=== PATIENT | male | born 1945 | race Caucasian/White ===

== ENCOUNTER 2016-06-05 20:34 | Emergency (ER) | payer MEDICARE, OTHER ==
[2016-06-05 20:34] VITALS: BMI 26.3
--- NOTE | 2016-06-05 22:35 | C.PDOC ---
History Of Present Illness 71M c/o bloody stool that occurred around 8pm tonight right after using an enema. he says he had a large amount of hard stool accompanied with blood. he has been struggling with constipation- 2 weeks ago he had not had a bm for 1 week and so he took a laxative and had so much diarrhea that day he passed out was seen at another hospital- had a normal abdominal CT scan at that time per his son. he has a hx of rectal ca s/p surgery, chemo, radiation 2 years ago. Time Seen by Provider: 06/05/16 22:06 Chief Complaint (Nursing): GI Problem Past Medical History Vital Signs: Last Vital Signs Temp 98.2 F 06/05/16 23:50 Pulse 64 06/05/16 23:50 Resp 18 06/05/16 23:50 BP 119/68 06/05/16 23:50 Pulse Ox 98 06/05/16 23:50 - Medical History PMH: Arthritis Denies: CHF, COPD, HIV, HTN, Hypercholesterolemia, Hypothyroidism, Chronic Kidney Disease, Rheumatoid Arthritis - [facility] Procedures ANTERIOR RECT RESECT NEC (07/19/14) COLOSTOMY NOS (07/19/14) INTESTINAL ANASTOM NOS (07/19/14) LG BOWEL STOMA CLOSURE (10/14/14) OCCUPATIONAL THERAPY (08/03/14) PHYSICAL THERAPY NEC (08/03/14) RECREATIONAL THERAPY (08/03/14) VACCINATION NEC (10/14/14) Family History: States: Other (nc) - Social History Hx Tobacco Use: No Hx Alcohol Use: No Hx Substance Use: No - Immunization History Hx Tetanus Toxoid Vaccination: No Hx Influenza Vaccination: No Hx Pneumococcal Vaccination: No Review Of Systems Constitutional: Negative for: Fever, Chills Cardiovascular: Negative for: Chest Pain Respiratory: Negative for: Cough, Shortness of Breath Gastrointestinal: Positive for: Hematochezia. Negative for: Nausea, Vomiting, Abdominal Pain, Diarrhea, Melena Neurological: Negative for: Weakness, Numbness, Headache Physical Exam - Physical Exam Appears: Well, Non-toxic, No Acute Distress Skin: Warm, Dry, No Pale Head: Atraumatic Oral Mucosa: Moist Neck: Normal ROM Cardiovascular: Rhythm Regular, No Murmur Respiratory: No Decreased Breath Sounds, No Accessory Muscle Use, No Rales, No Rhonchi, No Wheezing Gastrointestinal/Abdominal: Bowel Sounds, Soft, No Tenderness Rectal: No Maroon Stool, No Melena, No Blood Streaked Stool, No Mass, Tenderness Extremity: No Swelling Neurological/Psych: Oriented x3, Other (no focal deficits) ED Course And Treatment - Laboratory Results Result Diagrams: 06/05/16 22:56 06/05/16 22:56 O2 Sat by Pulse Oximetry: 99 Medical Decision Making Medical Decision Making: pt resting comfortably, hemoccult neg rectal exam, vss, hb stable. disc w pt and son plan for close f/u and rtr. Disposition - Disposition Referrals: Spenser Collins MD [Staff Provider] - Disposition: HOME/ ROUTINE Disposition Time: 23:32 Condition: GOOD Additional Instructions: Please follow up with your doctor tomorrow. Return to the ER for any worsening symptoms or for any other concerns. Prescriptions: Polyethylene Glycol 3350 [Glycolax] 17 gm PO DAILY PRN #1 bottle PRN Reason: Constipation Instructions: High Fiber Diet (ED) Forms: Gen Discharge Inst Macanese Print Language: IRANIAN - Clinical Impression Clinical Impression: Blood in stool
[2016-06-05 22:58] LABS: BASO # 0.1 K/uL (0.0-0.2); LYMPH # 0.9 K/uL (1.0-4.3)
[2016-06-05 23:06] LABS: BASO % 1.1 % (0.0-2.0); EOS # 0.2 K/uL (0.0-0.7); EOS % 1.7 % (0.0-4.0); HEMATOCRIT 41.3 % (35.0-51.0); LYMPH % 10.5 % (20.0-40.0); MEAN CELL VOLUME 89.1 fL (80.0-94.0); MEAN CORPUSCULAR HEMOGLOBIN 29.6 pg (27.0-31.0); MEAN CORPUSCULAR HGB CONC 33.2 g/dL (33.0-37.0); MEAN PLATELET VOLUME 7.5 fL (7.2-11.7); MONO # 0.9 K/uL (0.0-0.8); MONO % 10.3 % (0.0-10.0); RED CELL DISTRIBUTION WIDTH 13.1 % (11.5-14.5)
[2016-06-05 23:07] LABS: WHITE BLOOD COUNT 8.8 K/uL (4.8-10.8)
[2016-06-05 23:11] LABS: CHLORIDE 96 mmol/L (98-107)
[2016-06-05 23:12] LABS: POTASSIUM 3.9 mmol/L (3.6-5.2); SODIUM 136 mmol/L (132-148)
[2016-06-05 23:14] LABS: ALB/GLOB RATIO 1.2 (1.0-2.1); ALKALINE PHOSPHATASE 92 U/L (38-126); AST/SGOT 26 U/L (17-59); BILIRUBIN,TOTAL 0.4 mg/dL (0.2-1.3); CARBON DIOXIDE 28 mmol/L (22-30); GFR AFRICAN-AMERICAN > 60; TOTAL PROTEIN 7.4 g/dL (6.3-8.3)
[2016-06-05 23:15] LABS: ALT/SGPT 34 U/L (21-72); BLOOD UREA NITROGEN 19 mg/dL (9-20); CALCIUM 8.6 mg/dl (8.6-10.4); GLUCOSE,RANDOM 107 mg/dL (75-110)
[2016-06-05 23:51] VITALS: BP 119/68; PULSE 64; RESP 18; TEMP 98.2
[2016-06-06 13:49] VITALS: O2SAT 99
== END 2016-06-05 23:52 | disposition home or self-care (01) ==
LOC: C.ER 20:34
DX: K92.1 Melena (principal)
CPT/HCPCS: 80053; 85025; 99284; G0328

== ENCOUNTER 2016-10-20 11:08 | Emergency (ER) | payer MEDICARE, OTHER ==
[2016-10-20 11:09] VITALS: BMI 26.3
[2016-10-20 11:27] VITALS: BP 153/97; PULSE 63; RESP 16; TEMP 98.2; O2SAT 97
--- NOTE | 2016-10-20 12:07 | C.PDOC ---
History Of Present Illness 71 yr old male presents to the ER with 1 week history of body aches, which is assocaited with itchy rash on the back and right upper arm. Patient denies travel, fever, nausea or vomiting. Time Seen by Provider: 10/20/16 11:36 Chief Complaint (Nursing): Abnormal Skin Integrity History Per: Patient History/Exam Limitations: no limitations Onset/Duration Of Symptoms: Days (1 week ) Current Symptoms Are (Timing): Still Present Past Medical History Reviewed: Historical Data, Nursing Documentation, Vital Signs Vital Signs: Last Vital Signs Temp 98.2 F 10/20/16 11:12 Pulse 63 10/20/16 11:12 Resp 16 10/20/16 11:12 BP 153/97 H 10/20/16 11:12 Pulse Ox 97 10/20/16 13:21 - Medical History PMH: Arthritis, Hiatal Hernia - [facility] Procedures ANTERIOR RECT RESECT NEC (07/19/14) COLOSTOMY NOS (07/19/14) INTESTINAL ANASTOM NOS (07/19/14) LG BOWEL STOMA CLOSURE (10/14/14) OCCUPATIONAL THERAPY (08/03/14) PHYSICAL THERAPY NEC (08/03/14) RECREATIONAL THERAPY (08/03/14) VACCINATION NEC (10/14/14) Family History: States: No Known Family Hx - Social History Hx Tobacco Use: No Hx Alcohol Use: No Hx Substance Use: No - Immunization History Hx Tetanus Toxoid Vaccination: No Hx Influenza Vaccination: No Hx Pneumococcal Vaccination: No Review Of Systems Except As Marked, All Systems Reviewed And Found Negative. Constitutional: Positive for: Other ((+) Body aches ). Negative for: Fever Gastrointestinal: Negative for: Nausea, Vomiting Skin: Positive for: Rash (Itchy rash to the back and right upper arm ) Physical Exam - Physical Exam Appears: Non-toxic, No Acute Distress Skin: Normal Color, Warm, Rash (Scant macular rash to the right arm and back. No vesicles, no erythema or tenderness. Rash spares the palms and soles of the feet. ) Head: Atraumatic, Normacephalic Eye(s): bilateral: Normal Inspection, PERRL, EOMI Oral Mucosa: Moist Tongue: Normal Appearing, No Lesions Lips: Normal Appearing, No Swelling Throat: No Erythema, No Exudate Neck: Normal ROM, Supple Chest: Symmetrical Cardiovascular: Rhythm Regular, No Friction Rub, No Murmur Respiratory: Normal Breath Sounds, No Rhonchi, No Stridor, No Wheezing Gastrointestinal/Abdominal: Soft, No Tenderness, Other ((+) healed surgical scar to the mid abdomen) Back: Normal Inspection, No CVA Tenderness, No Vertebral Tenderness, No Paraspinal Tenderness Extremity: Normal ROM, No Tenderness, No Calf Tenderness, No Swelling Neurological/Psych: Oriented x3, Normal Speech, Normal Motor, Normal Sensation Gait: Steady ED Course And Treatment O2 Sat by Pulse Oximetry: 97 (on RA) Pulse Ox Interpretation: Normal Medical Decision Making Medical Decision Making: PLAN: * Benadryl PO * Prednisone PO * Toradol IM On re-exam, the patient reports improvement of symptoms. Lungs are CTA, heart is RRR, abdomen is soft, non-tender and patient is tolerating PO well. Ambulatory in the ED with steady gait. Follow up with the medical doctor within 1-2 days, Return if worsened. Disposition - Disposition Referrals: Spenser Collins MD [Staff Provider] - Disposition: HOME/ ROUTINE Disposition Time: 12:56 Condition: GOOD Additional Instructions: Follow up with the medical doctor within 1-2 days, Return if worsened. Prescriptions: DiphenhydrAMINE [Benadryl] 25 mg PO QID #28 cap Ketoconazole [Nizoral] 120 ml TP BID #1 shampoo Ketoconazole 2% Cr [Nizoral] 60 gm EXT BID #3 tube Instructions: Tinea Corporis (ED) Forms: [facility] ([place]) - Clinical Impression Clinical Impression: Viral syndrome, Tinea corporis - PA / AMBULANCE OFFICER / Resident Statement MD/DO has reviewed & agrees with the documentation as recorded. - Scribe Statement The provider has reviewed the documentation as recorded by the Scribe Dali Wells All medical record entries made by the Scribe were at my direction and personally dictated by me. I have reviewed the chart and agree that the record accurately reflects my personal performance of the history, physical exam, medical decision making, and the department course for this patient. I have also personally directed, reviewed, and agree with the discharge instructions and disposition.
== END 2016-10-20 13:07 | disposition home or self-care (01) ==
LOC: C.ER 11:08
DX: B35.4 Tinea corporis (principal); B34.9 Viral infection, unspecified
CPT/HCPCS: 96372; 99283; J1885

== ENCOUNTER → 2018-07-22 | Outpatient (CLI) | payer OTHER | LOC: C.NUCMED 09:29 | DX: C18.9 Malignant neoplasm of colon, unspecified (principal) ==